=== PATIENT | male | born 1935 | race Caucasian/White ===

== ENCOUNTER → 2016-11-05 10:27 | Outpatient (CLI) | payer MEDICARE, OTHER ==
[2014-10-19 11:45] VITALS: BMI 31.0
[~2016-11-05 10:27] MED LIST: ADVAIR 250/501 DISK INH; ALDACTONE50 MG PO; AZELASTINE137 MCG/0. NASAL; ELIQUIS5 MG PO; FLOMAX0.4 MG PO; FLUTICASONE PRO16 GM NASAL; LIPITOR40 MG PO; MELATONIN 3 MG1 TAB PO; MERREM 1 GM/NS 11 G1 IV; MUCINEX DM ER1 EAC1 PO; OXYBUTYNIN CHLOR5 MG PO; PRILOSEC20 MG PO; PROSCAR5 MG PO; PROVENTIL/2.5 MG/3 M NEB; ROBITUSSIN DM 110 ML PO; SINGULAIR10 MG PO; SPIRIVA18 MCG INH; TOBRAMYCIN S40 MG/M1 IV; TRAZODONE HCL50 MG PO; ZOLOFT100 MG PO
== END | disposition home or self-care (01) ==
LOC: D.RT 10:27
DX: J44.9 Chronic obstructive pulmonary disease, unspecified (principal)

== ENCOUNTER → 2017-04-08 15:46 | Outpatient (CLI) | payer MEDICARE, OTHER ==
[2014-10-19 11:45] VITALS: BMI 31.0
== END | disposition home or self-care (01) ==
LOC: D.LAB 15:46
DX: Z12.5 Encounter for screening for malignant neoplasm of prostate (principal)

== ENCOUNTER → 2017-06-11 09:03 | Outpatient (CLI) | payer MEDICARE, OTHER ==
[2014-10-19 11:45] VITALS: BMI 31.0
== END | disposition home or self-care (01) ==
LOC: D.RAD 08:30
DX: J47.9 Bronchiectasis, uncomplicated (principal)

== ENCOUNTER 2017-08-01 07:26 | Inpatient (IN) | payer MEDICARE, OTHER ==
[~2017-08-01] VITALS: Ht 180.3 cm; Wt 135.1 kg
--- NOTE | ~2017-08-01 | EC ---
PATIENT:ROBERT FRANCES DATE OF SERVICE: 08/01/17 SEX: M MEDICAL RECORD: [id number] DATE OF : 33 LOCATION:D.M2 D.210 AGE OF PATIENT: 82 ADMISSION DATE: 08/01/17 REFERRING PHYSICIAN: INTERPRETING PHYSICIAN: JACKSON BARROS MD ECHOCARDIOGRAM REPORT ECHO CHARGES 5 ECHO LIMITED Date: 08/02 CLINICAL DIAGNOSIS: CHF HX AFIB/HTN ECHOCARDIOGRAPHIC MEASUREMENTS (adult normal given) AC root (d.<3.7cm) cm LV Septum d (<1.2 cm> cm Valve Excursion cm LV Septum (systole) cm Left Atria (s.<4.0cm> 3.8 cm LVPW d(<1.2cm) cm RV (d.<2.3cm) 5.2 cm LVPW (sytole) cm LV diastole(<5.6CM) 6.4 cm MV E-F(>70mm/sec) cm LV systole 5.2 cm LVOT Diameter 2.1 cm MV exc.(>10mm) cm Est.ejection fraction (50-75%) % DOPPLER: LVIT cm/sec A 59.0 cm/sec E 133 cm/sec LA cm/sec RVSP 40 mmHg LVOT 105 cm/sec AOP1/2T m/s Asc. Ao 135 cm/sec RVOT cm/sec RA cm/sec PA cm/sec AV Gradient Peak 7.32 mmHg AV Mean 3.80 mmHg AV Area 3.1 cm MV Gradient Peak 8.03 mmHg MV Mean 2.57 mmHg MV Area cm COMMENTS: Pattern Vault Clerk: Edwige SAMAYOA Head Boys Golf Coach: 1 Dr. Barros TAPE# PACS Pericardial Effusion N DATE OF SERVICE: PROCEDURE: Echocardiogram. FINDINGS: 1. Left ventricular chamber size is within normal limits. Left ventricular systolic function is normal. Overall ejection fraction estimated at 55%. 2. Left atrium is within normal limits at 3.8 cm. Right atrium and right ventricle chamber sizes are moderate to severely dilated. 3. Valvular structures have normal structure and motion. ECHOCARDIOGRAM REPORT [id number] ROBERT FRANCES 4. Doppler interrogation only reveals trace mitral and tricuspid regurgitation, no other valvular insufficiency or stenosis. Pulmonary systolic pressure is estimated at 40 mmHg. 5. No evidence of pericardial effusion or left ventricular thrombus. TRANSINT:[id number] Voice Confirmation ID: [id number] DOCUMENT ID: [id number] JACKSON BARROS MD at 1056 CC: [id number] DICTATION DATE: 08/02/17 1401 FUR GLOSSER: 08/02/17 1438 DIS IN 08/07/17 [place] [id number] [place] [id number]
[~2017-08-01 07:26] MED LIST changes: +OMEPRAZOLE40 MG PO; -PRILOSEC20 MG PO
[2017-08-01 07:57] LABS: BASOPHILS 0.2 % (0-2); HEMATOCRIT 37.4 % (42.0-54.0); HEMOGLOBIN 11.5 g/dL (13.5-17.5); IMMATURE GRANULOCYTES 0.2 % (0-5); LYMPHOCYTES 3.9 % (15-50); MCHC 30.7 g/dL (31.0-37.0); MCV 87.8 fL (80.0-100.0); MEAN PLATELET VOLUME 12.9 fL (7.4-10.4); MONOCYTES 6.7 % (2-11); RBC 4.26 10x6/uL (4.20-6.10); RDW 16.5 % (11.5-14.5); WBC 13.6 10x3/uL (4.8-10.8)
[2017-08-01 07:58] LABS: PLATELET COUNT 201 10x3/uL (130-400)
[2017-08-01 08:12] LABS: ALBUMIN 3.7 g/dL (3.4-5.0); ANION GAP 12.6 mmol/L (8-16); BILIRUBIN - TOTAL 0.93 mg/dL (0.2-1.3); CALCIUM 8.5 mg/dL (8.5-10.1); CARBON DIOXIDE 28.2 mmol/L (21.0-32.0); CREATININE - SERUM 1.2 mg/dL (0.6-1.3); POTASSIUM - SERUM 3.8 mmol/L (3.5-5.1); PROTEIN - SERUM 7.9 g/dL (6.4-8.2)
[2017-08-01 08:20] LABS: TROPONIN-I 0.026 ng/mL (0.000-0.060)
[2017-08-01 10:45] VITALS: BP 159/83; BMI 25.8
[2017-08-01 13:01] VITALS: BP 132/61
[2017-08-01] MEDS ORDERED: FUROSEMIDE20 MG PO (13:52)
[2017-08-01] MEDS ORDERED: NYSTATIN ORAL SU5 ML PO (13:54)
[2017-08-01] MEDS ORDERED: TESSALON PERLE100 MG PO (13:55)
[2017-08-01] MEDS ORDERED: ARICEPT10 MG PO (13:56)
[2017-08-01] MEDS ORDERED: LOMOTIL TABLET1 TAB PO (13:56)
[2017-08-01] MEDS ORDERED: PEPCID40 MG PO (13:57)
[2017-08-01 15:17] LABS: % SATURATION 13 % (15-55); IRON 50 ug/dl (35-150); TOTAL IRON BIND CAPACITY 374 ug/dl (260-445); UNSAT IRON BIND CAPACITY 324 ug/dl (150-375)
[2017-08-01 17:28] VITALS: BP 138/84
[2017-08-01 21:55] VITALS: BP 105/71
[2017-08-02 00:55] VITALS: BP 111/74
[2017-08-02 04:48] LABS: BASOPHILS 0.1 % (0-2); EOSINOPHILS 0 % (0-7); HEMOGLOBIN 11.3 g/dL (13.5-17.5); IMMATURE GRANULOCYTES 0.4 % (0-5); MCH 27.2 pg (26.0-34.0); MCHC 30.5 g/dL (31.0-37.0); MCV 88.9 fL (80.0-100.0); MEAN PLATELET VOLUME 13.7 fL (7.4-10.4); MONOCYTES 2.7 % (2-11); NEUTROPHILS 91.8 % (40-80); PLATELET COUNT 200 10x3/uL (130-400); RBC 4.16 10x6/uL (4.20-6.10); RDW 16.4 % (11.5-14.5)
[2017-08-02 04:59] LABS: WBC 9.1 10x3/uL (4.8-10.8)
[2017-08-02 05:10] LABS: ANION GAP 17.1 mmol/L (8-16); CALCIUM 8.8 mg/dL (8.5-10.1); CARBON DIOXIDE 25.6 mmol/L (21.0-32.0); CREATININE - SERUM 1.3 mg/dL (0.6-1.3); MAGNESIUM - SERUM 1.9 mg/dL (1.8-2.4); PHOSPHOROUS 4.9 mg/dL (2.5-4.9); POTASSIUM - SERUM 3.7 mmol/L (3.5-5.1)
[2017-08-02 05:48] VITALS: BP 149/81
[2017-08-02 08:18] LABS: FOLATE (FOLIC ACID) - SERUM 11.4 ng/mL (>3.0)
[2017-08-02 10:28] VITALS: BP 138/83
[2017-08-02 12:13] VITALS: Ht 180.3 cm; Wt 135.1 kg
[2017-08-02 13:17] VITALS: BP 138/62
[2017-08-02 16:30] VITALS: BP 133/71
[2017-08-02 19:00] VITALS: BP 161/72
[2017-08-03 03:33] VITALS: BP 156/78
[2017-08-03 04:49] LABS: BASOPHILS 0.1 % (0-2); EOSINOPHILS 0.1 % (0-7); HEMOGLOBIN 9.7 g/dL (13.5-17.5); IMMATURE GRANULOCYTES 0.4 % (0-5); LYMPHOCYTES 5.7 % (15-50); MCH 26.7 pg (26.0-34.0); MCHC 30.3 g/dL (31.0-37.0); MCV 88.2 fL (80.0-100.0); MEAN PLATELET VOLUME 13.2 fL (7.4-10.4); MONOCYTES 8.4 % (2-11); NEUTROPHILS 85.3 % (40-80); PLATELET COUNT 161 10x3/uL (130-400); RBC 3.63 10x6/uL (4.20-6.10); RDW 16.2 % (11.5-14.5)
[2017-08-03 05:08] LABS: ANION GAP 11.7 mmol/L (8-16); CALCIUM 8.4 mg/dL (8.5-10.1); CARBON DIOXIDE 28.3 mmol/L (21.0-32.0); CREATININE - SERUM 1.2 mg/dL (0.6-1.3); VANCOMYCIN - TROUGH 10.5 ug/mL (10.0-20.0)
[2017-08-03 07:44] VITALS: BP 159/82
[2017-08-03 11:01] VITALS: BP 126/75
[2017-08-03 15:22] VITALS: BP 127/59
[2017-08-03 21:03] VITALS: BP 148/85
[2017-08-04 01:52] VITALS: BP 172/86
[2017-08-04 04:31] LABS: BASOPHILS 0.1 % (0-2); EOSINOPHILS 0 % (0-7); HEMATOCRIT 33.1 % (42.0-54.0); HEMOGLOBIN 9.9 g/dL (13.5-17.5); IMMATURE GRANULOCYTES 0.5 % (0-5); LYMPHOCYTES 4.3 % (15-50); MCH 26.9 pg (26.0-34.0); MCHC 29.9 g/dL (31.0-37.0); MCV 89.9 fL (80.0-100.0); MEAN PLATELET VOLUME 12.9 fL (7.4-10.4); MONOCYTES 3.3 % (2-11); NEUTROPHILS 91.8 % (40-80); PLATELET COUNT 160 10x3/uL (130-400); RBC 3.68 10x6/uL (4.20-6.10); RDW 16.5 % (11.5-14.5); WBC 8.2 10x3/uL (4.8-10.8)
[2017-08-04 05:11] LABS: ANION GAP 12.3 mmol/L (8-16); CALCIUM 8.1 mg/dL (8.5-10.1); CREATININE - SERUM 1.2 mg/dL (0.6-1.3); POTASSIUM - SERUM 4.3 mmol/L (3.5-5.1)
[2017-08-04 05:37] VITALS: BP 169/90
[2017-08-04 09:01] VITALS: BP 114/84
[2017-08-04 13:03] VITALS: BP 128/51
[2017-08-04 17:15] VITALS: BP 113/62
[2017-08-04 21:25] VITALS: BP 165/78
[2017-08-05 00:35] VITALS: BP 164/88
[2017-08-05 04:52] LABS: BASOPHILS 0 % (0-2); EOSINOPHILS 0 % (0-7); HEMATOCRIT 34.4 % (42.0-54.0); HEMOGLOBIN 10.3 g/dL (13.5-17.5); IMMATURE GRANULOCYTES 0.4 % (0-5); LYMPHOCYTES 4.9 % (15-50); MCH 26.7 pg (26.0-34.0); MCHC 29.9 g/dL (31.0-37.0); MCV 89.1 fL (80.0-100.0); MONOCYTES 6.3 % (2-11); NEUTROPHILS 88.4 % (40-80); PLATELET COUNT 178 10x3/uL (130-400); RBC 3.86 10x6/uL (4.20-6.10); RDW 16.5 % (11.5-14.5); WBC 9.8 10x3/uL (4.8-10.8)
[2017-08-05 05:05] LABS: ANION GAP 10.4 mmol/L (8-16); CALCIUM 8.3 mg/dL (8.5-10.1); CARBON DIOXIDE 30.5 mmol/L (21.0-32.0); CREATININE - SERUM 1.2 mg/dL (0.6-1.3); POTASSIUM - SERUM 3.9 mmol/L (3.5-5.1)
[2017-08-05 05:41] VITALS: BP 155/83
[2017-08-05 08:39] VITALS: BP 164/81
[2017-08-05 12:16] VITALS: BP 151/74
[2017-08-05 16:55] VITALS: BP 162/90
[2017-08-05 21:09] VITALS: BP 144/80
[2017-08-06 05:09] LABS: BASOPHILS 0 % (0-2); EOSINOPHILS 0.2 % (0-7); HEMATOCRIT 33.2 % (42.0-54.0); HEMOGLOBIN 10.1 g/dL (13.5-17.5); IMMATURE GRANULOCYTES 0.5 % (0-5); LYMPHOCYTES 10.3 % (15-50); MCH 26.9 pg (26.0-34.0); MCHC 30.4 g/dL (31.0-37.0); MCV 88.3 fL (80.0-100.0); MEAN PLATELET VOLUME 12.8 fL (7.4-10.4); MONOCYTES 10.7 % (2-11); NEUTROPHILS 78.3 % (40-80); PLATELET COUNT 161 10x3/uL (130-400); RBC 3.76 10x6/uL (4.20-6.10); RDW 16.6 % (11.5-14.5); WBC 8.4 10x3/uL (4.8-10.8)
[2017-08-06 05:28] LABS: CALCIUM 8.3 mg/dL (8.5-10.1); CARBON DIOXIDE 32.6 mmol/L (21.0-32.0); CREATININE - SERUM 1.3 mg/dL (0.6-1.3); POTASSIUM - SERUM 3.6 mmol/L (3.5-5.1)
[2017-08-06 06:16] VITALS: BP 146/65
[2017-08-06 09:07] VITALS: BP 137/82
[2017-08-06 12:15] VITALS: BP 143/75
[2017-08-06 16:34] VITALS: BP 126/64
[2017-08-06 21:30] VITALS: BP 135/67
[2017-08-07 01:12] VITALS: BP 147/81
[2017-08-07 03:58] LABS: BASOPHILS 0.1 % (0-2); EOSINOPHILS 0.2 % (0-7); HEMATOCRIT 34.5 % (42.0-54.0); HEMOGLOBIN 10.4 g/dL (13.5-17.5); IMMATURE GRANULOCYTES 0.8 % (0-5); LYMPHOCYTES 10.1 % (15-50); MCH 26.8 pg (26.0-34.0); MCHC 30.1 g/dL (31.0-37.0); MCV 88.9 fL (80.0-100.0); MEAN PLATELET VOLUME 12.5 fL (7.4-10.4); NEUTROPHILS 79.8 % (40-80); PLATELET COUNT 179 10x3/uL (130-400); RBC 3.88 10x6/uL (4.20-6.10); RDW 16.4 % (11.5-14.5)
[2017-08-07 04:13] LABS: CALCIUM 8.1 mg/dL (8.5-10.1); CARBON DIOXIDE 32.7 mmol/L (21.0-32.0); CREATININE - SERUM 1.2 mg/dL (0.6-1.3); POTASSIUM - SERUM 3.7 mmol/L (3.5-5.1)
[2017-08-07 05:21] VITALS: BP 139/76
[2017-08-07 08:09] VITALS: BP 159/90
[2017-08-07] MEDS ORDERED: LEVAQUIN500 MG PO (10:52)
[2017-08-07] MEDS ORDERED: DOXYCYCLINE HY100 M2 PO (10:52)
[2017-08-07] MEDS ORDERED: PREDNISONE10 MG PO (10:53)
[2017-08-07 11:34] VITALS: BP 173/93
[2017-09-17] MEDS ORDERED: IPRAT-ALBUT 0.5-3 ML UPD (16:31)
== END 2017-08-07 14:09 | disposition home or self-care (01) | DRG 177 ==
LOC: D.ER 07:26 → D.M2 09:42
PROVIDERS: Emergency Medicine; Family Medicine; Internal Medicine Nephrology
PROC: 5A09557 Assistance with Respiratory Ventilation, Greater than 96 Consecutive Hours, Continuous Positive Airway Pressure (ICD-10-PCS; principal; 2017-08-01)
DX: J15.6 Pneumonia due to other Gram-negative bacteria (principal); J96.21 Acute and chronic respiratory failure with hypoxia; J44.0 Chronic obstructive pulmonary disease with (acute) lower respiratory infection; J44.1 Chronic obstructive pulmonary disease with (acute) exacerbation; N17.9 Acute kidney failure, unspecified; J98.11 Atelectasis; J15.212 Pneumonia due to Methicillin resistant Staphylococcus aureus; I48.91 Unspecified atrial fibrillation; K21.9 Gastro-esophageal reflux disease without esophagitis; D64.9 Anemia, unspecified; F43.10 Post-traumatic stress disorder, unspecified; M10.9 Gout, unspecified; J32.9 Chronic sinusitis, unspecified; R91.8 Other nonspecific abnormal finding of lung field; E78.5 Hyperlipidemia, unspecified; I10 Essential (primary) hypertension; N40.0 Benign prostatic hyperplasia without lower urinary tract symptoms; G47.33 Obstructive sleep apnea (adult) (pediatric)

== ENCOUNTER 2017-09-18 05:09 | Day surgery (SDC) | payer MEDICARE, OTHER ==
[~2017-09-18] VITALS: Ht 180.3 cm; Wt 81.6 kg
--- NOTE | ~2017-09-18 | OP ---
PATIENT NAME: ROBERT FRANCES MEDICAL RECORD: [id number] :34 LOCATION:D.OPS ADMISSION DATE: SURGEON: OMER ZAMAN MD DATE OF OPERATION: 09/18/2017 SURGEON: Omer Zaman MD ANESTHESIA: General anesthesia by Dr. Nick Dick. PREOPERATIVE DIAGNOSIS: Obstructive benign prostatic hypertrophy. PROCEDURE: Cystoscopy, GreenLight transurethral resection of the prostate (TURP), power 80-100 ortega, energy 40,233 kilo joules, laser on time 8 minutes 25 seconds. 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 This was dilated. Trilobar hyperplasia of the prostate. Single ureteral orifices bilaterally with no bladder tumors. ESTIMATED BLOOD LOSS: None. CLINICAL HISTORY: This is an 82-year-old male, who has quite severe obstructive BPH symptoms. He had microwave thermotherapy of the prostate in 2002 for obstructive BPH. His voiding symptoms are fine for 10 years and then the symptoms started to reoccur. Now, he has to void every hour on the hour at night and during the daytime, he voids every 1 to 1-1/2 hours. He is having a very hard time sleeping because of this urinary frequency and urgency. He has been on finasteride and tamsulosin for several years and these have not been helping. He has quite significant pulmonary history. He has COPD, asthma, and he recently had pneumonia, which delayed his surgery until he was over the pneumonia. He also has obstructive sleep apnea and aspiration risk. He has chronic atrial fibrillation and congestive heart failure. He is on Eliquis for the atrial fibrillation. We had pulmonary and cardiac clearance obtained for the patient. His preoperative chest x-ray shows some basilar atelectasis bilaterally, but no signs of pneumonia. HE IS ALLERGIC TO TRIPLE ANTIBIOTIC OINTMENT. We gave him ampicillin and sulbactam 3 grams IV masonry instructor to the OR. DESCRIPTION OF PROCEDURE: The patient was given general anesthetic. He was then placed into dorsal lithotomy position and prepped and draped. We tried to insert the laser resectoscope with the visual obturator. However, the patient has a stenosis of the urethral meatus which prevented insertion. Male sounds were used to dilate the urethra to 26-Vietnamese. The scope could then enter without any hindrance. 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 The scope was able to pass through the stricture. Going into the prostatic urethra, he has bilateral lateral lobe hyperplasia with obstruction. The right lateral lobe seems to have grown larger than the left. The bladder neck is also obstructive. Finally, in the bladder, we see single ureteral orifices. The bladder is heavily trabeculated with diverticula being present. No bladder tumors were seen. We then introduced the laser fiber. Our resection was confined to the region between the bladder neck and just proximal to the verumontanum. We started initially on the posterior wall and took down the bladder neck and posterior wall to the pseudocapsule of the BPH. Then, the right lateral wall was taken down. This was also taken down to the capsule. The left lateral wall was also taken down. There was still some tissue left on the right lateral wall and as the tissue had started to dry OPERATIVE REPORT [id number] ROBERT FRANCES out, I was not responding as well to the 80 ortega of power, we increased the power to 100 ortega and then I finished vaporizing the remaining tissue on the right lateral wall. At the end of the procedure, the patient has a wide open channel through the prostatic urethra which you see from the verumontanum all the way to the bladder neck. No bleeding of any kind was seen. The scope was then removed. A 20-Vietnamese 3-way Ramirez catheter was inserted into the bladder. The balloon was inflated with 20 cc of sterile water. The inflow port of the 3-way Ramirez catheter had a catheter plug placed. The catheter was then put to bag drainage. The patient will be going home today with a prescription for Tylenol No. 3 times 20 tablets with no refills. I will see him in followup in the office tomorrow to remove the Ramirez catheter for a voiding trial. TRANSINT:[id number] Voice Confirmation ID: [id number] DOCUMENT ID: [id number] OMER ZAMAN MD at 1538 CC: [id number] DICTATION DATE: 09/18/17 1101 STRAIGHTEDGE WORKER: 09/18/17 1425 [facility] [address] [place] [address]
[~2017-09-18 05:09] MED LIST changes: +ARICEPT10 MG PO; +DOXYCYCLINE HY100 M2 PO; +FUROSEMIDE20 MG PO; +IPRAT-ALBUT 0.5-3 ML UPD; +LEVAQUIN500 MG PO; +LOMOTIL TABLET1 TAB PO; +NYSTATIN ORAL SU5 ML PO; +PEPCID40 MG PO; +PREDNISONE10 MG PO; +TESSALON PERLE100 MG PO
[2017-09-18 05:47] LABS: BASOPHILS 0.3 % (0-2); EOSINOPHILS 1.9 % (0-7); HEMATOCRIT 35.7 % (42.0-54.0); HEMOGLOBIN 11.1 g/dL (13.5-17.5); IMMATURE GRANULOCYTES 0.3 % (0-5); LYMPHOCYTES 9.8 % (15-50); MCH 27.1 pg (26.0-34.0); MCHC 31.1 g/dL (31.0-37.0); MCV 87.1 fL (80.0-100.0); MEAN PLATELET VOLUME 12.5 fL (7.4-10.4); MONOCYTES 7.8 % (2-11); NEUTROPHILS 79.9 % (40-80); RDW 16.5 % (11.5-14.5); WBC 10.1 10x3/uL (4.8-10.8)
[2017-09-18 05:51] LABS: PLATELET COUNT 215 10x3/uL (130-400)
[2017-09-18 06:15] LABS: ANION GAP 13.6 mmol/L (8-16); CALCIUM 8.5 mg/dL (8.5-10.1); CARBON DIOXIDE 28.1 mmol/L (21.0-32.0); CREATININE - SERUM 1.3 mg/dL (0.6-1.3); POTASSIUM - SERUM 3.7 mmol/L (3.5-5.1)
[2017-09-18 06:37] VITALS: BP 132/70; Ht 180.3 cm; Wt 81.6 kg
== END 2017-09-18 12:05 | disposition home or self-care (01) ==
LOC: D.OPS 05:09 → D.PAN 09:45 → D.OPS 09:45
PROVIDERS: Anesthesiology
DX: N40.0 Benign prostatic hyperplasia without lower urinary tract symptoms (principal); I10 Essential (primary) hypertension; I48.91 Unspecified atrial fibrillation; K21.9 Gastro-esophageal reflux disease without esophagitis; J44.9 Chronic obstructive pulmonary disease, unspecified; G47.30 Sleep apnea, unspecified; Z87.891 Personal history of nicotine dependence; Z01.812 Encounter for preprocedural laboratory examination

== ENCOUNTER → 2018-07-08 13:28 | Outpatient (CLI) | payer MEDICARE, OTHER ==
[2017-09-18 06:37] VITALS: BMI 25.1
--- NOTE | 2018-07-10 11:54 | EC ---
PATIENT:ROBERT FRANCES DATE OF SERVICE: 07/08/18 SEX: M MEDICAL RECORD: [id number] DATE OF : 34 LOCATION:D.[facility] AGE OF PATIENT: 83 ADMISSION DATE: 07/08/18 REFERRING PHYSICIAN: INTERPRETING PHYSICIAN: JACKSON BARROS MD ECHOCARDIOGRAM REPORT ECHO CHARGES 4 ECHO COMPLETE Date: 07/08/18 CLINICAL DIAGNOSIS: HTN HX OF MR/HTN/AIFB/COPD ECHOCARDIOGRAPHIC MEASUREMENTS (adult normal given) AC root (d.<3.7cm) 4.37 cm LV Septum d (<1.2 cm> 1.5 cm Valve Excursion 1.5 cm LV Septum (systole) 1.6 cm Left Atria (s.<4.0cm> 5.3 cm LVPW d(<1.2cm) 1.8 cm RV (d.<2.3cm) 3.7 cm LVPW (sytole) 1.9 cm LV diastole(<5.6CM) 5.4 cm MV E-F(>70mm/sec) cm LV systole 3.5 cm LVOT Diameter 2.0 cm MV exc.(>10mm) 1.4 cm Est.ejection fraction (50-75%) % DOPPLER: LVIT cm/sec A 29.0 cm/sec E 91.0 cm/sec LA cm/sec RVSP 49 mmHg LVOT 95 cm/sec AOP1/2T m/s Asc. Ao 147 cm/sec RVOT 64 cm/sec RA cm/sec PA 98 cm/sec AV Gradient Peak 8.63 mmHg AV Mean 4.72 mmHg AV Area 2.1 cm MV Gradient Peak 5.44 mmHg MV Mean 1.78 mmHg MV Area cm COMMENTS: Sand Mixer Operator: Edwige SAMAYOA City Driver: [address] Dr. Barros TAPE# PACS Pericardial Effusion N DATE OF SERVICE: 07/08/2018 ECHOCARDIOGRAM DATE OF SERVICE: 07/08/2018 FINDINGS: 1. Left ventricular chamber size is within normal limits. Left ventricular systolic function is normal. Overall ejection fraction estimated at 55%. 2. Left atrium is enlarged at 5.3 cm. Right atrium and right ventricular ECHOCARDIOGRAM REPORT [id number] ROBERT FRANCES chamber sizes are within normal limits. 3. Valvular structures have normal structure and motion. 4. Doppler interrogation reveals mild mitral regurgitation, [id number] tricuspid regurgitation. No other valvular insufficiency or stenosis. Pulmonary systolic pressure is elevated estimated at 49 mmHg. 5. No evidence of pericardial effusion or left ventricular thrombus. TRANSINT:[id number] Voice Confirmation ID: [id number] DOCUMENT ID: [id number] JACKSON BARROS MD at 1154 CC: [id number] DICTATION DATE: 07/09/18 1127 MOTORMAN/WOMAN: 07/09/18 1149 DEP CLI 07/08/[address] [address]
== END | disposition home or self-care (01) ==
LOC: D.HCCARDIO 13:28
PROVIDERS: ATTEND Internal Medicine Interventional Cardiology
DX: I10 Essential (primary) hypertension (principal)

== ENCOUNTER → 2018-07-14 20:23 | Outpatient (CLI) | payer MEDICARE, OTHER ==
[2017-09-18 06:37] VITALS: BMI 25.1
== END | disposition home or self-care (01) ==
LOC: D.LABREF 20:23
PROVIDERS: ATTEND Urology
DX: R31.9 Hematuria, unspecified (principal)

== ENCOUNTER → 2018-07-18 13:11 | Outpatient (CLI) | payer MEDICARE, OTHER ==
[2017-09-18 06:37] VITALS: BMI 25.1
== END | disposition home or self-care (01) ==
LOC: D.CT 13:11
PROVIDERS: ATTEND Urology
DX: R31.21 Asymptomatic microscopic hematuria (principal)

== ENCOUNTER 2018-08-05 08:40 | Day surgery (SDC) | payer MEDICARE, OTHER ==
[2018-08-04 14:26] LABS: BASOPHILS 0.1 % (0-2); EOSINOPHILS 0.5 % (0-7); HEMATOCRIT 38.2 % (42.0-54.0); HEMOGLOBIN 12.4 g/dL (13.5-17.5); IMMATURE GRANULOCYTES 0.2 % (0-5); LYMPHOCYTES 6.9 % (15-50); MCH 30.6 pg (26.0-34.0); MCHC 32.5 g/dL (31.0-37.0); MCV 94.3 fL (80.0-100.0); MEAN PLATELET VOLUME 12.1 fL (7.4-10.4); MONOCYTES 7.3 % (2-11); PLATELET COUNT 172 10x3/uL (130-400); RBC 4.05 10x6/uL (4.20-6.10); RDW 15.4 % (11.5-14.5); WBC 11.4 10x3/uL (4.8-10.8)
[2018-08-04 14:34] LABS: ANION GAP 11.1 mmol/L (8-16); CALCIUM 8.5 mg/dL (8.5-10.1); CARBON DIOXIDE 29.7 mmol/L (21.0-32.0); CREATININE - SERUM 1.2 mg/dL (0.6-1.3); POTASSIUM - SERUM 3.8 mmol/L (3.5-5.1)
[2018-08-04 14:51] LABS: APTT 27.4 SECONDS (22.8-39.4); INR 1.2 (0.85-1.17); PROTIME 14.7 SECONDS (11.6-15.0)
[~2018-08-05] VITALS: Ht 180.3 cm; Wt 77.1 kg
[~2018-08-05 08:40] MED LIST changes: +FERROUS SULFAT140 MG PO; +FOLIC ACID1 MG PO; +MUCINEX600 MG PO; +OPTIVE SENSITI1 EACH EACH EYE; +POTASSIUM CL ER 10 M PO; +PROZAC SOL20 MG/5 M1 PT; +VITAMIN B-121000 MCG PO; +VITAMIN D31000 UNIT PO
[2018-08-05 09:00] VITALS: BP 138/68; Ht 180.3 cm; Wt 77.1 kg
--- NOTE | 2018-08-05 14:15 | NUR ---
PATIENT DENIED THE USE OF A WHEELCHAIR. PATIENT WANTED TO VISIT ANOTHER PATIENT ON THE MED/SURG FLOOR. DAUGHTER AT BEDSIDE THAT DENIED THE USE OF WHEELCHAIR WELL. I ESCORTED PATIENT AND DAUGHTER TO THE MED/SURG FLOOR, PATIENT ENTERED THE OTHER PATIENTS ROOM AND SAT AT BEDSIDE. BOTH PATIENT AND DAUGHTER THANKED ME FOR MY HELP.
--- NOTE | 2018-08-05 14:42 | OP ---
PATIENT NAME: ROBERT FRANCES MEDICAL RECORD: [id number] :34 LOCATION:D.OPS ADMISSION DATE: SURGEON: OMER ZAMAN MD DATE OF OPERATION: 08/05/2018 SURGEON: Omer Zaman MD ANESTHESIA: TIVA by Omar Blanca CRNA. DIAGNOSIS: Obstructive BPH, microscopic hematuria. FINDINGS: No urethral strictures. Persistent obstructive bilateral prostatic lateral lobes. Well resected median lobe. Heavily trabeculated bladder without bladder tumors. Single ureteral orifices bilaterally. PROCEDURE: Cystoscopy. SPECIMENS: None. BLOOD LOSS: None. CLINICAL HISTORY: This is an 83-year-old male, whom I performed a GreenLight TURP on 09/18/2017. He is again referred for microscopic hematuria. He is on Eliquis for chronic atrial fibrillation. His wardrobe manager is Dr. Barros. Dr. Barros approved with holding his Eliquis for this procedure. When I performed the TURP, he had a series of urethral strictures that I had to dilate. No bladder tumors were found at that time. He had trilobar hyperplasia of the prostate. After the GreenLight TURP, he still has the same symptoms as before. He has a slow urinary flow and he has nocturia times 2-3. He also has a new unexplained weight loss of 30 pounds in the past 1 year. He is due to have colonoscopy and upper endoscopy in the near future. Today, he is having cystoscopy to check for the site of any possible residual obstruction. HE IS ALLERGIC TO TRIPLE ANTIBIOTIC OINTMENT. He was given Ancef sewing machines salesperson to the OR. DESCRIPTION OF PROCEDURE: The patient was given IV sedation. He was then placed into dorsal lithotomy position and prepped and draped. A 17-Tanzanian cystoscope with 30-degree lens was used for visualization. No urethral strictures were found. Looking at the prostatic urethra, there are signs of previous resection. However, the lateral lobes are still quite obstructive especially in the mid portion of the prostate. At the bladder neck level, the bladder neck is open in terms of having no median lobe. The lateral lobes even here still form some obstructiveness. He has single ureteral orifices on each side. The bladder was heavily trabeculated with cellules being present. No bladder tumors were seen. The bladder was emptied through the cystoscope sheath and then the scope was removed. I will discuss the UroLift procedure with him. TRANSINT:[id number] Voice Confirmation ID: [id number] DOCUMENT ID: [id number] OPERATIVE REPORT [id number] ROBERT FRANCES ROBERT S MD at 1442 CC: [id number] DICTATION DATE: 08/05/18 1252 SUPERVISOR RICE MILLING: 08/05/18 1402 [facility] SDC 08/05/18 [place] [id number]
== END 2018-08-05 14:13 | disposition home or self-care (01) ==
LOC: D.OPS 08:40 → D.PAN 11:00 → D.OPS 11:00 → D.PAN 12:15 → D.OPS 12:15
PROVIDERS: Anesthesiology; ATTEND Urology
DX: N40.1 Benign prostatic hyperplasia with lower urinary tract symptoms (principal); N13.8 Other obstructive and reflux uropathy; R35.1 Nocturia; R39.12 Poor urinary stream; R31.29 Other microscopic hematuria; N32.89 Other specified disorders of bladder; Z01.812 Encounter for preprocedural laboratory examination; I48.2 Chronic atrial fibrillation; Z79.01 Long term (current) use of anticoagulants; Z88.1 Allergy status to other antibiotic agents

== ENCOUNTER 2018-10-07 05:15 | Day surgery (SDC) | payer MEDICARE, OTHER ==
[2018-10-06 11:27] LABS: BASOPHILS 0.2 % (0-2); EOSINOPHILS 2.2 % (0-7); HEMATOCRIT 38.5 % (42.0-54.0); HEMOGLOBIN 12.3 g/dL (13.5-17.5); IMMATURE GRANULOCYTES 0.2 % (0-5); LYMPHOCYTES 7.7 % (15-50); MCH 29.8 pg (26.0-34.0); MCHC 31.9 g/dL (31.0-37.0); MCV 93.2 fL (80.0-100.0); MEAN PLATELET VOLUME 12.1 fL (7.4-10.4); MONOCYTES 6.8 % (2-11); NEUTROPHILS 82.9 % (40-80); RBC 4.13 10x6/uL (4.20-6.10); RDW 15.2 % (11.5-14.5); WBC 10.3 10x3/uL (4.8-10.8)
[2018-10-06 11:30] LABS: CALC OSMOLALITY 278 mosm/kg (275-300); CALCIUM 8.8 mg/dL (8.5-10.1); CARBON DIOXIDE 30.8 mmol/L (21.0-32.0); CHLORIDE - SERUM 104 mmol/L (98-107); GLUCOSE 89 mg/dL (74-106); POTASSIUM - SERUM 4.2 mmol/L (3.5-5.1); SODIUM 141 mmol/L (136-145); UREA NITROGEN 10 mg/dL (7-18); eGFR NON AFRICAN AMERICAN 76 mL/min (90-120)
[2018-10-06 11:32] LABS: APTT 35.3 SECONDS (22.8-39.4); INR 1.26 (0.85-1.17); PROTIME 15.3 SECONDS (11.6-15.0)
[2018-10-06 11:44] LABS: PLATELET COUNT 234 10x3/uL (130-400)
[~2018-10-07] VITALS: Ht 180.3 cm; Wt 77.6 kg
[~2018-10-07 05:15] MED LIST changes: +CEFUROXIME250 MG PO; +LEVOFLOXACIN500 MG PO; +PREDNISONE20 MG PO; +SEPTRA DS PO
[2018-10-07 06:34] VITALS: BP 157/80; Ht 180.3 cm; Wt 77.6 kg
--- NOTE | 2018-10-07 09:12 | OP ---
PATIENT NAME: ROBERT FRANCES MEDICAL RECORD: [id number] :34 LOCATION:ROGELIO ADMISSION DATE: SURGEON: JESÚS ZAMAN MD DATE OF OPERATION: 10/07/2018 SURGEON: Jesús Zaman MD ANESTHESIA: TIVA by Vincent Quinones CRNA DIAGNOSIS: Obstructive benign prostatic hypertrophy. PROCEDURE: UroLift times 4 implants. FINDINGS: Bilateral lateral lobe hyperplasia with obstruction, heavily trabeculated bladder, single ureteral orifices bilaterally. No bladder tumors. ESTIMATED BLOOD LOSS: None. CLINICAL HISTORY: This is an 83-year-old male on whom I performed GreenLight TURP on 09/18/2018. He is referred by the [facility] for microscopic hematuria. He is on Eliquis for chronic atrial fibrillation. Dr. Barros is his middle school english teacher. The Eliqu has been held for this procedure. When I performed a TURP, there were urethral strictures that I had to dilate. I did not find any bladder tumors. At that time, he had trilobar hyperplasia of the prostate. Since he has had a TURP, his voiding symptoms are not any better. He still has nocturia times 2-3, which is unchanged from before. He feels that the stream is good, but slow. He comes today to have a cystoscopy for the hematuria as well as a treatment to deal with any obstruction either from BPH residual or a urethral stricture. HE HAS ALLERGIES TO TRIPLE ANTIBIOTIC OINTMENT. He was given Ancef electronic warfare technician to the OR. DESCRIPTION OF PROCEDURE: The patient was given IV sedation. He was then placed in the lithotomy position and prepped and draped. We used the UroLift scope. No urethral strictures are found. The prostatic urethra is obstructive with bilateral lateral lobe hyperplasia. The bladder neck has been well-resected and there is no median lobe. Going into the bladder, the bladder was heavily trabeculated with cellules and diverticula visible. No bladder tumors were seen. There is some bladder inflammation evident. Single ureteral orifices are seen bilaterally. We then placed 4 UroLift implants to open up the anterior urethral channel. The first 2 were placed at the verumontanum level. They were placed in the anterolateral portion of the lateral lobe of the prostate. One implant was placed on each side. Then, another 2 implants were placed about 2 cm distal to the bladder neck. Again, they were placed in the anterior lateral sulcus. This opened up the anterior urethral channel quite widely. The bladder was left partly full and then the scope was removed. We will see the patient in followup in 1 months' time to check on his voiding symptoms. TRANSINT:[id number] Voice Confirmation ID: [id number] DOCUMENT ID: [id number] OPERATIVE REPORT [id number] ROBERT FRANCES, JESÚS Eisenberg MD at 0912 CC: [id number] DICTATION DATE: 10/07/18817 INDUSTRIAL ARTS TEACHER: 10/07/18 0840 [facility] [address] [place] [id number]
--- NOTE | 2018-10-07 10:40 | NUR ---
1030 CONTINUES TO DRINK PO LIQUIDS. NOW DRINKING ICED TEA. BLADDER SCANNER RECHECK WITH 158ML URINE SCANNED IN BLADDER. Luba MIDDLETON R.N.
--- NOTE | 2018-10-07 11:42 | NUR ---
1115 UP TO BATHROOM. VOIDED 100ML STEARNS RED COLORED URINE/[place] HAT. IV COMPLETED & DC'ED WITH CATH INTACT. DRESSING. DAUGHTER @ BEDSIDE. Luba MIDDLETON R.N. 1125 GIVEN DISCHARGE INFORMATION INCLUDING: MED REC WITH NOTES TO DISCONTINUE PROSCAR & TO RESUME ELIQUIS IN 2-3 DAYS WHEN URINE IS NO LONGER BLOODY, RTC APPT., [facility] OUTPATIENT D/C INSTRUCTIONS, & UROLIFT D/C INSTRUCTIONS. PT VOIDED URINE AN ADDITIONAL TIME WHILE RECEIVING D/C INSTRUCTIONS. PT & DAUGHTER VOICED UNDERSTANDING. VOIDED ANOTHER TIME PRIOR TO WHEELCHAIR RIDE PER VOLUNTEER TO PRIVATE VEHICLE. HOME WITH DAUGHTER, COLETTE ROQUE. Luba MIDDLETON R.N. PT & DAUGHTER VOICED UNDERSTANDING. TO PRIVATE CAR PER WHEELCHAIR BY VOLUNTEER. HOME WITH Chrissy
== END 2018-10-07 11:30 | disposition home or self-care (01) ==
LOC: D.PAN 05:15 → D.OPS 07:30 → D.PAN 07:30 → D.OPS 08:15 → D.PAN 11:30
PROVIDERS: Anesthesiology; ATTEND Urology
DX: N40.1 Benign prostatic hyperplasia with lower urinary tract symptoms (principal); N13.8 Other obstructive and reflux uropathy; R35.1 Nocturia; R31.9 Hematuria, unspecified; N32.89 Other specified disorders of bladder; N32.3 Diverticulum of bladder; I48.2 Chronic atrial fibrillation; Z79.01 Long term (current) use of anticoagulants; Z01.812 Encounter for preprocedural laboratory examination

== ENCOUNTER → 2019-03-18 08:27 | Outpatient (CLI) | payer MEDICARE, OTHER ==
[2018-10-07 06:34] VITALS: BMI 23.9
== END | disposition home or self-care (01) ==
LOC: D.RT 08:27
PROVIDERS: ATTEND Internal Medicine Pulmonary Disease
DX: J44.9 Chronic obstructive pulmonary disease, unspecified (principal); J45.909 Unspecified asthma, uncomplicated

== ENCOUNTER → 2019-09-07 13:53 | Outpatient (CLI) | payer MEDICARE, OTHER ==
[2018-10-07 06:34] VITALS: BMI 23.9
[2019-09-07 15:19] LABS: BASOPHILS 0.5 % (0-2); EOSINOPHILS 7.6 % (0-7); HEMATOCRIT 36.2 % (42.0-54.0); HEMOGLOBIN 10.9 g/dL (13.5-17.5); IMMATURE GRANULOCYTES 0.2 % (0-5); LYMPHOCYTES 9.9 % (15-50); MCH 27.3 pg (26.0-34.0); MCHC 30.1 g/dL (31.0-37.0); MCV 90.7 fL (80.0-100.0); MEAN PLATELET VOLUME 11.9 fL (7.4-10.4); MONOCYTES 10.6 % (2-11); NEUTROPHILS 71.2 % (40-80); PLATELET COUNT 272 10x3/uL (130-400); RBC 3.99 10x6/uL (4.20-6.10); RDW 15.6 % (11.5-14.5); WBC 8.5 10x3/uL (4.8-10.8)
== END | disposition home or self-care (01) ==
LOC: D.CT 13:00 → D.RT 14:00
PROVIDERS: ATTEND Internal Medicine Pulmonary Disease
DX: J45.909 Unspecified asthma, uncomplicated (principal); J47.1 Bronchiectasis with (acute) exacerbation; J44.9 Chronic obstructive pulmonary disease, unspecified

== ENCOUNTER → 2020-08-12 11:31 | Outpatient (CLI) | payer MEDICARE, OTHER ==
[2018-10-07 06:34] VITALS: BMI 23.9
== END | disposition home or self-care (01) ==
LOC: D.RAD 11:31
PROVIDERS: ATTEND Internal Medicine Pulmonary Disease
DX: Z87.01 Personal history of pneumonia (recurrent) (principal)